=== PATIENT | male | born 1965 | race Caucasian/White ===

== ENCOUNTER 2021-12-31 15:21 | Outpatient (CLI) | payer BC, SELFPAY ==
--- NOTE | ~2021-12-31 | XR_ITS ---
EXAMINATION: XR chest 2V DATE: 12/31/2021 16:02 INDICATION: Shortness of breath. Chest pain near the esophagus. TECHNIQUE: PA and lateral views of the chest were obtained. COMPARISON: None FINDINGS: The lungs are clear with no focal airspace opacities, pulmonary edema, pleural effusion or pneumothor ax. The cardiomediastinal silhouette is normal. Mild thoracic spondylosis. IMPRESSION: 1. No acute cardiopulmonary disease. Reviewed, dictated and finalized at location B.
--- NOTE | 2021-12-31 15:41 | ECG_ITS ---
Measurements Intervals [place] Rate: 77 P: 65 TN: 188 QRS: 62 QRSD: 94 T: 49 QT: 369 QTc: 418 Interpretive Statements SINUS RHYTHM NORMAL ECG Electronically Signed On 12-31-2021 16:24:44 CDT by Dickson Ruvalcaba D.O.
== END 2021-12-31 15:22 | disposition home or self-care (01) ==
LOC: ANHPFT 15:23
PROVIDERS: PCP Family Medicine; Visit Provider Family Medicine
DX: R06.00 Dyspnea, unspecified (principal)
CPT/HCPCS: 71046; 93005

== ENCOUNTER 2022-01-07 08:59 | Outpatient (CLI) | payer BC, SELFPAY ==
--- NOTE | 2022-01-07 09:20 | EST_ITS ---
Patient Info Name: Jarrett Latif Age: 56 years : 1965 Gender: Male Ht: 71 in Wt: 260 lbs BSA: 2.47 m2 HR: 70 bpm BP: 155 / 84 mmHg Heart Rhythm: Sinus Rhythm Exam Date: 01/07/2022 10:14 AM Exam Location: [facility] Stress Patient Status: Outpatient Admit Date: 01/07/2022 Staff Ordering Physician: Dilshad Madera MD Attending Provider: Dilshad Madera MD Exercise Technologist: Sandy Lee CT Exercise Physician: iDckson Ruvalcaba DO Exam Type: CA stress test treadmill Study Info Indications R06.02 - Shortness of breath A treadmill exercise stress test was performed. Summary 1. 1. Abnormal [place] exercise stress test for ischemic ST changes by ECG criteria. Patient achieved only 75% MPHR for age group which could be due to being on beta blockade which reduces sensitivity of the test. 2. 2. Reduced functional capacity, achieving 7 METs of workload. 3. 3. Baseline hypertension. 4. 4. No imaging with stress testing. 5. 5. Patient informed of the above results. Protocol: [place] Stress ECG Details Stage: REST Duration (min): 2 min : 33 sec Speed (mph): 0.0 Grade (%): 0 HR (bpm): 71 SBP (mmHg): 155 DBP (mmHg): 84 METS: --- Stage: REST Duration (min): 22 min : 50 sec Speed (mph): 0.0 Grade (%): 0 HR (bpm): 75 SBP (mmHg): 155 DBP (mmHg): 84 METS: --- Stage: STAGE 1 Duration (min): 1 min : 0 sec Speed (mph): 1.7 Grade (%): 10 HR (bpm): 102 SBP (mmHg): 155 DBP (mmHg): 84 METS: --- Stage: STAGE 1 Duration (min): 2 min : 0 sec Speed (mph): 1.7 Grade (%): 10 HR (bpm): 114 SBP (mmHg): 155 DBP (mmHg): 84 METS: --- Stage: STAGE 1 Duration (min): 3 min : 0 sec Speed (mph): 1.7 Grade (%): 10 HR (bpm): 117 SBP (mmHg): 155 DBP (mmHg): 84 METS: --- Stage: STAGE 2 Duration (min): 1 min : 0 sec Speed (mph): 2.5 Grade (%): 12 HR (bpm): 122 SBP (mmHg): 155 DBP (mmHg): 84 METS: --- Stage: STAGE 2 Duration (min): 2 min : 0 sec Speed (mph): 2.5 Grade (%): 12 HR (bpm): 123 SBP (mmHg): 183 DBP (mmHg): 74 METS: --- Stage: STAGE 2 Duration (min): 3 min : 0 sec Speed (mph): 2.5 Grade (%): 12 HR (bpm): 122 SBP (mmHg): 183 DBP (mmHg): 74 METS: --- Stage: RECOVERY Duration (min): 1 min : 0 sec Speed (mph): 0.0 Grade (%): 0 HR (bpm): 108 SBP (mmHg): 141 DBP (mmHg): 44 METS: --- Stage: RECOVERY Duration (min): 2 min : 0 sec Speed (mph): 0.0 Grade (%): 0 HR (bpm): 95 SBP (mmHg): 141 DBP (mmHg): 44 METS: --- Stage: RECOVERY Duration (min): 3 min : 0 sec Speed (mph): 0.0 Grade (%): 0 HR (bpm): 90 SBP (mmHg): 123 DBP (mmHg): 48 METS: --- Stage: RECOVERY Duration (min): 4 min : 0 sec Speed (mph): 0.0 Grade (%): 0 HR (bpm): 86 SBP (mmHg): 123 DBP (mmHg):
== END 2022-01-07 09:00 | disposition home or self-care (01) ==
PROVIDERS: PCP Family Medicine; Visit Provider Family Medicine
DX: R06.00 Dyspnea, unspecified (principal)
CPT/HCPCS: 93017

== ENCOUNTER 2022-01-09 13:43 | Outpatient (CLI) | payer BC, SELFPAY ==
--- NOTE | 2022-01-09 14:35 | ECHO_ITS ---
Patient Info Name: Jarrett Latif Age: 56 years : 1965 Gender: Male Ht: 71 in Wt: 260 lbs BSA: 2.47 m2 HR: 78 bpm BP: 157 / 96 mmHg Technical Quality: Good Exam Date: 01/09/2022 2:57 PM Exam Location: [facility] Pulmonary Patient Status: Outpatient Admit Date: 01/09/2022 Staff Ordering Physician: Dickson Ruvalcaba DO Computer Assembler: Irlanda Mckinnon RDCS Attending Provider: Dickson Ruvalcaba DO Referring Physician: Jordon MAJANO; Exam Type: CA echo doppler with color flow Study Info Indications - DYSPNEA Complete two-dimensional, color flow and Doppler transthoracic echocardiogram is performed. Summary 1. Complete two-dimensional, color flow and Doppler transthoracic echocardiogram is performed. 2. Left ventricular chamber dimension is normal. 3. Left ventricular systolic function is normal, estimated at 60-65%. 4. The left ventricular diastolic function is grade II diastolic dysfunction. 5. E/e' 10 is mildly elevated. 6. Left atrial chamber dimension is mildly enlarged. 7. No pulmonary hypertension, estimated pulmonary arterial systolic pressure is 20 mmHg. Left Ventricle E/e' 10 is mildly elevated. Left ventricular chamber dimension is normal. Left ventricular systolic function is normal, estimated at 60-65%. The left ventricular diastolic function is grade II diastolic dysfunction. Right Ventricle Right ventricular chamber dimension is normal. Right ventricular systolic function is normal. Left Atria Left atrial chamber dimension is mildly enlarged. Right Atria Right atrial chamber dimension is normal. Aortic Valve The aortic valve is trileaflet. There is no aortic valve stenosis. There is no aortic valve regurgitation. Pulmonic Valve There is no pulmonic regurgitation. Mitral Valve There is no mitral valve stenosis. There is no mitral valve regurgitation. Tricuspid Valve There is no tricuspid valve regurgitation. No pulmonary hypertension, estimated pulmonary arterial systolic pressure is 20 mmHg. Pericardium/Pleural There is no pericardial effusion. Inferior Vena Cava Normal inferior vena cava with >50% collapse upon inspiration consistent with normal right atrial pressure, 5 mmHg. Aorta The aortic root size at the sinus of Valsalva is normal. Left Ventricular Outflow Tract Name Value Normal LVOT 2D LVOT Diameter 2.01 cm LVOT Doppler LVOT Peak Gradient 8 mmHg LVOT Mean Gradient 4 mmHg LVOT VTI 22.99 cm LVOT VTI/AV VTI Ratio 0.69 LVOT Stroke Volume 72.87 ml LVOT CO 17.54 l/min LVOT CI 7.09 L/min/m2 Pulmonic Valve Name Value Normal PV Doppler PV Peak Gradient 7 mmHg Mitral Valve
== END 2022-01-09 13:44 | disposition home or self-care (01) ==
LOC: ANHCARD 13:44
PROVIDERS: PCP Family Medicine; Visit Provider Internal Medicine Cardiovascular Disease
DX: R06.00 Dyspnea, unspecified (principal)
CPT/HCPCS: 93306; C8929

== ENCOUNTER 2023-05-19 13:15 | Outpatient (CLI) | payer BC, SELFPAY ==
--- NOTE | ~2023-05-19 | XR_ITS ---
Clinical Indication: Bronchitis PA and lateral views of the chest: Comparison: 12/31/2021 Findings: The lungs are clear, without evidence of focal consolidation or pleural effusion. Cardiome diastinal silhouette is within normal limits. Bones and soft tissues are unremarkable. Impression: Normal chest. Reviewed, dictated and finalized at location . Impression: Normal chest.
== END 2023-05-19 13:16 | disposition home or self-care (01) ==
PROVIDERS: PCP Family Medicine; Visit Provider Family Medicine
DX: J20.9 Acute bronchitis, unspecified (principal)
CPT/HCPCS: 71046

== ENCOUNTER 2023-11-17 01:49 | Day surgery (SDC) | payer BC, SELFPAY ==
[2023-11-09 14:49] VITALS: BMI 24.0
[2023-11-17 06:23] VITALS: BP 159/81; PULSE 73; RESP 18; TEMP 36.5; O2SAT 100
[2023-11-17] MEDS: LACTATED RINGERS 1,000 ML 150 ML IV CONT (06:35)
[2023-11-17 06:41] LABS: Glucose Point of Care 112 mg/dl (65-105)
--- NOTE | 2023-11-17 07:26 | WPDANESEPPF ---
Anes - Initial Pre Proc Eval Procedure: Operation Date: 11/17/23 07:30 Proposed Procedures p Screening Colonoscopy - Sudhir Alex DO Date/Time: 11/17/23 07:26 Surgeon: Sudhir Alex DO Pre Op Diagnosis: Screening for malignant neoplasm of colon Patient Data Age: 58 Gender: M Height: 1.8 m Weight: 110.2 kg Last Vital Signs Temp 97.7 F 11/17/23 06:23 Pulse 73 11/17/23 06:23 Resp 18 11/17/23 06:23 BP 159/81 H 11/17/23 06:23 Pulse Ox 100 11/17/23 06:23 O2 Del Method Room Air 11/17/23 06:23 Allergies Allergy/AdvReac Type Severity Reaction Status Date / Time niacin AdvReac Other Verified 11/17/23 06:19 Home Medications Medication Instructions Recorded Confirmed Type aspirin 81 mg tablet,delayed 81 mg PO DAILY 01/07/22 11/17/23 History release (Adult Low Dose Aspirin) carvedilol 25 mg tablet 25 mg PO Q12H #180 tabs 08/29/22 11/17/23 Rx atorvastatin 80 mg tablet 80 mg PO DAILY #90 tabs 11/21/22 11/17/23 Rx metformin 500 mg tablet,extended 1,000 mg PO BID #360 tabs 02/16/23 11/17/23 Rx release 24 hr fenofibrate 160 mg tablet See Rx Instructions .Route 02/17/23 11/17/23 Rx .COMPLEX #90 tabs empagliflozin 25 mg tablet 25 mg PO DAILY #90 tabs 05/21/23 11/17/23 Rx (Jardiance) irbesartan 300 mg tablet 300 mg PO DAILY #90 tabs 05/21/23 11/17/23 Rx omeprazole 40 mg capsule,delayed 40 mg PO DAILY #90 caps 05/21/23 11/17/23 Rx release fluticasone propionate 50 1 spray intranasal BID #16 grams 08/06/23 11/17/23 Rx mcg/actuation nasal spray,suspension (Flonase Allergy Relief) icosapent ethyl 1 gram capsule 2 g PO BID #360 caps 08/27/23 11/17/23 Rx (Vascepa) semaglutide 0.25 mg or 0.5 mg (2 0.25 mg (0.368 mL) subcut WEEKLY 10/07/23 11/17/23 Rx mg/3 mL) subcutaneous pen injector #3 mL (Ozempic) cholecalciferol (vitamin D3) 50 50 mcg PO DAILY 11/09/23 11/17/23 History mcg (2,000 unit) capsule (Vitamin D3) magnesium 250 mg tablet 250 mg PO DAILY 11/09/23 11/17/23 History zinc 50 mg PO DAILY 11/09/23 11/17/23 History Laboratory Tests 11/17/23 06:38 POC Capillary Glucose 112 H mg/dl (65-105) Patient hx anesthesia problems: none Family hx anesthesia problems: none Results Review: All pre-operative results and documents have been reviewed as part of the pre-operative evaluation. [facility] Past Medical History Medical History (Updated 10/07/23 @ 08:28 by Dilshad Madera MD) Abnormal stress test Acute bronchitis Normal chest x-ray 05/19/2023. BMI 34.0-34.9,adult BMI 35.0-35.9,adult BMI 37.0-37.9, adult BMI 38.0-38.9,adult BMI 38.0-38.9,adult Chronic left shoulder pain Colon cancer screening Dyspnea on exertion Chest x-ray 10/31/2020 revealed no active lung disease and EKG revealed normal sinus rhythm. Encounter for prostate cancer screening PSA 0.38 on 09/10/2021. PSA 0.4 on 09/29/2022. PSA 0.39 on 09/18/2023. Gastroenteritis Left lateral epicondylitis Lip swelling Nail fungus bilateral great toes Obesity (BMI 30-39.9) Osteoarthritis involving multiple joints on both sides of body Screening for diabetic retinopathy no retinopathy on 04/21/2023. Urticaria Vitamin D deficiency, unspecified Family History Family History Father Acute myocardial infarction Grandparent Acute myocardial infarction Carcinoma of colon Mother Family history of primary malignant neoplasm of liver, Onset Age: 39 Social History Social History Smoking status: Never smoker Alcohol intake: current Substance use: never Substance use type: does not use Lack of Food: Never True Current Housing: I Have Housing Concerned About Future Housing: No Difficulty Paying Gas/Electric Bills: No Difficulty Paying for Meds: No Currently Unemployed: No Education: High School
--- NOTE | 2023-11-17 07:32 | PM.IMHP ---
H&P: HPI History of Present Illness Date/Time: 11/17/23 07:32 Chief Complaint: Screening for colorectal cancer Narrative: This is a 58-year-old man who presents for colonoscopy. He has never had a colonoscopy before. He did have a Cologuard test a couple years ago which was normal. He denies any hematochezia or melena. Denies any family history of colon cancer. Review of Systems Review of Systems: All systems reviewed & are unremarkable except as noted in HPI and below Constitutional: Constitutional: Denies chills, Denies fever(s), Denies headache(s) and Denies weight loss Eyes: Eyes: Denies change in vision ENT: Denies dizziness, Denies headache(s), Denies neck mass and Denies throat swelling Cardiovascular: Cardiovascular: Denies chest pain, Denies lightheadedness and Denies dyspnea Respiratory: Respiratory: Denies cough, Denies dyspnea and Denies wheezing Gastrointestinal: Gastrointestinal: Denies abdominal pain, Denies change in bowel habits, Denies nausea and Denies vomiting Genitourinary: Genitourinary: Denies hematuria and Denies dysuria Musculoskeletal: Musculoskeletal: Reports as per HPI Integumentary/Breasts: Skin/Breast: Reports as per HPI Neurologic: Denies dizziness and Denies headache(s) Allergic/Immunologic: Allergic/Immunologic: Denies throat swelling and Denies wheezing [facility] Past Medical History Medical History (Updated 11/17/23 @ 07:32 by Sudhir Alex DO) Abnormal stress test Acute bronchitis Normal chest x-ray 05/19/2023. BMI 34.0-34.9,adult BMI 35.0-35.9,adult BMI 37.0-37.9, adult BMI 38.0-38.9,adult BMI 38.0-38.9,adult Chronic left shoulder pain Colon cancer screening Dyspnea on exertion Chest x-ray 10/31/2020 revealed no active lung disease and EKG revealed normal sinus rhythm. Encounter for prostate cancer screening PSA 0.38 on 09/10/2021. PSA 0.4 on 09/29/2022. PSA 0.39 on 09/18/2023. Gastroenteritis Left lateral epicondylitis Lip swelling Nail fungus bilateral great toes Obesity (BMI 30-39.9) Osteoarthritis involving multiple joints on both sides of body Screening for diabetic retinopathy no retinopathy on 04/21/2023. Urticaria Vitamin D deficiency, unspecified Family History Family History Father Acute myocardial infarction Grandparent Acute myocardial infarction Carcinoma of colon Mother Family history of primary malignant neoplasm of liver, Onset Age: 39 Social History Social History Smoking status: Never smoker Alcohol intake: current Substance use: never Substance use type: does not use Lack of Food: Never True Current Housing: I Have Housing Concerned About Future Housing: No Difficulty Paying Gas/Electric Bills: No Difficulty Paying for Meds: No Currently Unemployed: No Education: High School Diploma/GED Difficulty w/ Childcare or Family Care: No Living arrangements: with family Spiritual care concerns: No Meds Home Medications and Allergies Home Medications Medication Instructions Recorded Confirmed Type aspirin 81 mg tablet,delayed 81 mg PO DAILY 01/07/22 11/17/23 History release (Adult Low Dose Aspirin) carvedilol 25 mg tablet 25 mg PO Q12H #180 tabs 08/29/22 11/17/23 Rx atorvastatin 80 mg tablet 80 mg PO DAILY #90 tabs 11/21/22 11/17/23 Rx metformin 500 mg tablet,extended 1,000 mg PO BID #360 tabs 02/16/23 11/17/23 Rx release 24 hr fenofibrate 160 mg tablet See Rx Instructions .Route 02/17/23 11/17/23 Rx .COMPLEX #90 tabs empagliflozin 25 mg tablet 25 mg PO DAILY #90 tabs 05/21/23 11/17/23 Rx (Jardiance) irbesartan 300 mg tablet 300 mg PO DAILY #90 tabs 05/21/23 11/17/23 Rx omeprazole 40 mg capsule,delayed 40 mg PO DAILY #90 caps 05/21/23 11/17/23 Rx release fluticasone propionate 50 1 spray intranasal BID #16 grams 08/06/23 11/17/23 Rx
--- NOTE | 2023-11-17 07:51 | SUR.OPER ---
Cecal Polypectomy x2 via hot snare. On one polyp retrieved. Dr. Alex aware.
[2023-11-17 08:00] VITALS: BP 107/66; PULSE 70; RESP 18; O2SAT 96
[2023-11-17 08:10] VITALS: BP 127/77; PULSE 65; RESP 18; O2SAT 97
[2023-11-17 08:20] VITALS: BP 131/86; PULSE 65; RESP 17; O2SAT 98
== END 2023-11-17 08:30 | disposition home or self-care (01) ==
PROVIDERS: PCP Family Medicine; Visit Provider Surgery
PROC: 0DJD8ZZ Inspection of Lower Intestinal Tract, Via Natural or Artificial Opening Endoscopic (ICD-10-PCS; CPT 45378; principal; 2023-11-17 07:30)
DX: Z12.11 Encounter for screening for malignant neoplasm of colon (principal); D12.0 Benign neoplasm of cecum; D12.8 Benign neoplasm of rectum; K63.5 Polyp of colon; E55.9 Vitamin D deficiency, unspecified; Z79.84 Long term (current) use of oral hypoglycemic drugs; Z79.82 Long term (current) use of aspirin; Z79.85 Long-term (current) use of injectable non-insulin antidiabetic drugs; E66.9 Obesity, unspecified; Z68.33 Body mass index [BMI] 33.0-33.9, adult
CPT/HCPCS: 45385; 82948; 88305; J2704; J7120